=== PATIENT | female | born 1985 | race African-American/Black ===

== ENCOUNTER 2017-04-15 06:27 | Emergency (ER) | payer MEDICAID, OTHER ==
[~2017-04-15] VITALS: Ht 167.6 cm; Wt 69.0 kg
[~2017-04-15 06:27] MED LIST: ACYC200C PO; ALD500 GT; PREN-127 PO
[2017-04-15 07:20] LABS: HEMATOCRIT. 40.7 % (36.0-48.0); HEMOGLOBIN. 13.7 g/dL (12.0-16.0); LYMPHOCYTES % 17.8 % (20.0-50.0); MEAN CORPUSCULAR HEMOGLOBIN 30.8 pg (28.0-32.0); MEAN CORPUSCULAR VOLUME 91.5 fL (81.0-99.0); MEAN PLATELET VOLUME 7.3 fl (7.4-10.4); MONOCYTES % 6.2 % (2.0-8.0); PLATELET 322 x1000/uL (130-400); RED BLOOD CELL COUNT 4.45 mill/uL (4.2-5.4); RED CELL DISTRIBUTION WIDTH 13.9 % (11.6-14.6)
[2017-04-15] MEDS ORDERED: MORPHINE SULFATE 4 MG/ML CPJ (NOT FOR IM USE) IV STA (07:21)
[2017-04-15] MEDS ORDERED: KETOROLAC 30MG/ML VIAL IV STA (07:21)
[2017-04-15] MEDS ORDERED: ONDANSETRON HCL 4MG/2ML VIAL IV STA (07:21)
[2017-04-15 07:35] LABS: CARBON DIOXIDE 27 mEq/L (21-32); CHLORIDE 109 mEq/L (98-107)
[2017-04-15 07:37] LABS: TROPONIN I < 0.02 ng/mL (0.00-0.04)
[2017-04-15 07:41] LABS: HCG SCREEN NEGATIVE
[2017-04-15] MEDS ORDERED: IOHEXOL-350 100 ML BOTTLE ONE (08:00)
[2017-04-15] MEDS ORDERED: SODIUM CHLORIDE 0.9% 10ML VIAL ONE (08:00)
[2017-04-15 08:31] LABS: CLARITY URINE CLOUDY (CLEAR); COLOR URINE YELLOW (YELLOW); GLUCOSE URINE NEGATIVE (NEGATIVE); KETONES URINE NEGATIVE (NEGATIVE); LEUKOCYTE ESTERASE URINE TRACE (NEGATIVE); NITRITE URINE NEGATIVE (NEGATIVE); OCCULT BLOOD URINE NEGATIVE (NEGATIVE); PROTEIN URINE NEGATIVE (NEGATIVE); SPECIFIC GRAVITY URINE 1.025 (1.005-1.030); UROBILINOGEN URINE 0.2 E.U./dL (0.2-1.0)
[2017-04-15 11:12] VITALS: BP 147/102
== END 2017-04-15 11:50 | disposition home or self-care (01) ==
LOC: ER 07:53
DX: R07.89 Other chest pain (principal); R05 Cough; S29.011A Strain of muscle and tendon of front wall of thorax, initial encounter; I10 Essential (primary) hypertension
CPT/HCPCS: 36415; 71010; 71275; 80053; 81001; 83690; 84484; 84703; 85025; 93005; 96374; 96375; 96376; 99285; A4216; J1885; J2270; J2405; Q9967; Z7610

== ENCOUNTER 2017-04-18 08:22 | Inpatient (IN) | payer MEDICAID, OTHER ==
[~2017-04-18] VITALS: Ht 167.6 cm; Wt 67.6 kg
[2017-04-18] MEDS ORDERED: ONDANSETRON HCL 4MG/2ML VIAL IV STA (08:42)
[2017-04-18] MEDS ORDERED: MORPHINE SULFATE 4 MG/ML CPJ (NOT FOR IM USE) IV STA (08:42)
[2017-04-18] MEDS ORDERED: SODIUM CHLORIDE 0.9% 1,000 ML IV ONE (08:42)
[2017-04-18 09:08] LABS: BASOPHILS % 0.5 % (0.0-2.0); HEMATOCRIT. 44.1 % (36.0-48.0); HEMOGLOBIN. 14.5 g/dL (12.0-16.0); LYMPHOCYTES % 16.3 % (20.0-50.0); MEAN CORPUSCULAR HEMOGLOBIN 30.1 pg (28.0-32.0); MEAN CORPUSCULAR VOLUME 91.6 fL (81.0-99.0); MEAN PLATELET VOLUME 7.5 fl (7.4-10.4); MONOCYTES % 6.7 % (2.0-8.0); NEUTROPHILS % 68.5 % (40.0-76.0); PLATELET 347 x1000/uL (130-400); RED BLOOD CELL COUNT 4.82 mill/uL (4.2-5.4); RED CELL DISTRIBUTION WIDTH 13.8 % (11.6-14.6)
[2017-04-18 09:17] LABS: HCG SCREEN NEGATIVE; INR 1.1; PARTIAL THROMBOPLASTIN TIME 29.5 sec (23.4-31.0)
[2017-04-18 09:23] LABS: CARBON DIOXIDE 27 mEq/L (21-32); CHLORIDE 106 mEq/L (98-107); TROPONIN I < 0.02 ng/mL (0.00-0.04)
[2017-04-18] MEDS ORDERED: IPRATROPIUM BROMIDE (0.02%) 0.5MG/2.5ML NEB HHN STA (09:34)
[2017-04-18] MEDS ORDERED: METHYLPREDNISOLONE SOD SUCC 125 MG/2 ML VIAL IV STA (09:34)
[2017-04-18] MEDS ORDERED: ALBUTEROL (0.083%) 2.5MG/3ML NEB HHN STA (09:34)
[2017-04-18] MEDS ORDERED: METRONIDAZOLE 500 MG PREMIX 100 ML IV ONE (11:45)
[2017-04-18] MEDS ORDERED: LEVOFLOXACIN 500MG PREMIX 100 ML IV ONE (11:45)
[2017-04-18 11:49] LABS: CLARITY URINE CLEAR (CLEAR); COLOR URINE YELLOW (YELLOW); GLUCOSE URINE NEGATIVE (NEGATIVE); KETONES URINE NEGATIVE (NEGATIVE); LEUKOCYTE ESTERASE URINE NEGATIVE (NEGATIVE); NITRITE URINE NEGATIVE (NEGATIVE); OCCULT BLOOD URINE NEGATIVE (NEGATIVE); PROTEIN URINE NEGATIVE (NEGATIVE); SPECIFIC GRAVITY URINE 1.012 (1.005-1.030); UROBILINOGEN URINE 0.2 E.U./dL (0.2-1.0)
[2017-04-18] MEDS ORDERED: MORPHINE SULFATE 4 MG/ML CPJ (NOT FOR IM USE) IV ONE (12:15)
[2017-04-18] MEDS ORDERED: ONDANSETRON HCL 4MG/2ML VIAL IV ONE (12:15)
[2017-04-18 12:17] LABS: *AMPHETAMINES SCREEN URINE NEGATIVE (NEGATIVE); *BARBITURATES SCREEN URINE NEGATIVE (NEGATIVE); *BENZODIAZEPINES SCREEN URINE NEGATIVE (NEGATIVE); *COCAINE SCREEN URINE NEGATIVE (NEGATIVE); CANNABINOID URINE SCREEN NEGATIVE (NEGATIVE); METHADONE URINE SCREEN NEGATIVE (NEGATIVE); PHENCYCLIDINE URINE SCREEN NEGATIVE (NEGATIVE)
[2017-04-18 12:30] LABS: OPIATES URINE SCREEN PRESUMTIVE POSITIVE (NEGATIVE)
[2017-04-18] MEDS ORDERED: ACETAMINOPHEN 325MG TABLET PO PRN (18:00)
[2017-04-18 21:20] VITALS: BP 147/87
[2017-04-18] MEDS ORDERED: HYDROMORPHONE HCL/PF 2MG/ML CPJ IV PRN (22:00)
[2017-04-18] MEDS ORDERED: ENOXAPARIN 40MG/0.4ML SYR SUBCUT SCH (22:30)
[2017-04-18] MEDS: IPRATROPIUM/ALBUTEROL 0.5-3(2.5)MG/3ML NEB HHN SCH (23:33)
[2017-04-19] VITALS: BP 149/86
[2017-04-19] MEDS: SODIUM CHLORIDE 0.9% INJ 3ML FLUSH IVF SCH ×3 (00:23→12:26)
[2017-04-19] MEDS ORDERED: clonidine PO (00:32)
[2017-04-19] MEDS ORDERED: promethazine (00:32)
[2017-04-19 04:00] VITALS: BP 142/88
[2017-04-19] MEDS: IPRATROPIUM/ALBUTEROL 0.5-3(2.5)MG/3ML NEB HHN SCH ×3 (04:26→12:27)
[2017-04-19] MEDS: DEXT 5%/0.45% NACL KCL 20MEQ/L 1,000 ML IV NR ×2 (04:43→12:27)
[2017-04-19 07:25] LABS: BASOPHILS % 0.3 % (0.0-2.0); EOSINOPHILS % 0.2 % (0.0-5.0); HEMATOCRIT. 37.3 % (36.0-48.0); HEMOGLOBIN. 12.4 g/dL (12.0-16.0); LYMPHOCYTES % 9.2 % (20.0-50.0); MEAN CORPUSCULAR HEMOGLOBIN 30.3 pg (28.0-32.0); MEAN CORPUSCULAR VOLUME 91.4 fL (81.0-99.0); MEAN PLATELET VOLUME 7.7 fl (7.4-10.4); MONOCYTES % 6.6 % (2.0-8.0); NEUTROPHILS % 83.7 % (40.0-76.0); PLATELET 326 x1000/uL (130-400); RED BLOOD CELL COUNT 4.08 mill/uL (4.2-5.4); RED CELL DISTRIBUTION WIDTH 13.9 % (11.6-14.6)
[2017-04-19 08:00] VITALS: BP 149/89
[2017-04-19 08:19] LABS: CARBON DIOXIDE 25 mEq/L (21-32); CHLORIDE 107 mEq/L (98-107)
[2017-04-19 10:11] VITALS: BP 141/91
[2017-04-19 12:00] VITALS: BP 150/101
[2017-04-19] MEDS ORDERED: LEVOFLOXACIN 500MG PREMIX 100 ML IV SCH (12:00)
[2017-04-19 15:17] VITALS: BP 144/100
== END 2017-04-19 15:45 | disposition home or self-care (01) ==
LOC: ER 08:22 → 8WST 11:42 → EDBEDREQTM 11:46 → EDBEDREQ 11:46 → ENRESERV 19:12
PROVIDERS: ADMIT Ophthalmology; ATTEND Ophthalmology
DX: K80.62 Calculus of gallbladder and bile duct with acute cholecystitis without obstruction (principal); J45.901 Unspecified asthma with (acute) exacerbation; I10 Essential (primary) hypertension; K83.8 Other specified diseases of biliary tract; Z82.49 Family history of ischemic heart disease and other diseases of the circulatory system; Z79.899 Other long term (current) drug therapy
CPT/HCPCS: 36415; 71010; 74181; 76705; 80053; 80305; 81003; 83690; 83880; 84443; 84484; 84703; 85025; 85610; 85730; 93005; 94640; 94664; 96361; 96365; 96367; 96375; 96376; 99291; J1170; J1650; J1956; J2270; J2405; J2930; J3490; J7030; J7040; J7611; J7620

== ENCOUNTER 2017-05-09 07:03 | Emergency (ER) | payer MEDICAID ==
[~2017-05-09] VITALS: Ht 167.6 cm; Wt 68.0 kg
[2017-05-09] MEDS ORDERED: ALBUTEROL (0.5%) 2.5MG/0.5ML NEB HHN ONE (07:45)
[2017-05-09] MEDS ORDERED: GUAIFENESIN/CODEINE 200-20MG/10ML UDC PO ONE (08:15)
[2017-05-09] MEDS ORDERED: PREDNISONE 20MG TABLET PO ONE (08:15)
[2017-05-09 09:31] VITALS: BP 136/100
[2017-05-09] MEDS ORDERED: CLONIDINE 0.2MG TABLET PO ONE (09:45)
== END 2017-05-09 11:14 | disposition home or self-care (01) ==
LOC: ER 07:21
DX: J06.9 Acute upper respiratory infection, unspecified (principal); I10 Essential (primary) hypertension; J45.909 Unspecified asthma, uncomplicated
CPT/HCPCS: 71010; 94640; 99284; J7512; J7611; Z7610